=== PATIENT | female | born 1935 | race Caucasian/White ===

== ENCOUNTER 2023-03-12 11:01 | Emergency (ER) | payer MEDICARE, SELFPAY ==
[2023-03-12 11:05] VITALS: BP 150/78; PULSE 70; PULSE 74; RESP 17; TEMP 35.8; O2SAT 96; BMI 25.7
--- NOTE | 2023-03-12 11:11 | EX.ED.DYSGE1 ---
HPI History of Present Illness Chief Complaint: Foreign Body Informant: patient Narrative Narrative: Choked on a donut while she was swallowing a piece of it, she states she got to the point where she was not able to breathe or talk and was motioning for someone to get her something to drink which she did not have with her at the time; she was with about 20 women getting their hair done prior to a wedding today. She states that EMS was called and by the time they got there she had taken a sip and was able to breathe and talk, but she is not sure exactly what changed the situation; she did not receive the Heimlich maneuver from anyone. Now, no shortness of breath but a little bit of coughing residual and foreign body sensation in her throat. No discomfort or symptoms otherwise, including any in the chest. PFSH PFSH Allergy/AdvReac Type Severity Reaction Status Date / Time Iodinated Contrast Media Allergy Severe KIDNEY Verified 03/12/23 11:03 DYSFUNCTION Penicillins Allergy Mild Rash Verified 03/12/23 11:03 Sulfa (Sulfonamide Allergy Mild Rash Verified 03/12/23 11:02 Antibiotics) Social History Smoking Status: Never smoker ROS ROS ED Eyes Eyes: Denies change in vision or diplopia ENT ENT ED: Reports as per HPI Cardiovascular Cardiovascular: Denies syncope Respiratory/Chest Respiratory/Chest: Reports cough; Denies dyspnea EXAM Physical Exam Const Vital Signs: 03/12/23 11:04 03/12/23 11:05 03/12/23 11:05 Temperature 96.4 F L Temperature Source Temporal Pulse Rate 70 74 Respiratory Rate 17 17 Respiratory Effort Normal Non-Labored Respiratory Pattern Normal Blood Pressure 150/78 H 150/78 H Blood Pressure Mean 102 102 Pulse Ox 96 96 Oxygen Delivery Method Room Air Room Air Positive well nourished and well developed General Appearance ED: well developed and NAD HEENT Reports moist mucous membranes HEENT Narrative: P OP clear No stridor. No trismus. Eyes PERRL and EOMs intact bilaterally Neck no lymphadenopathy and supple Chest Wall inspection of chest normal and palpation of chest normal Resp normal respiratory effort and clear to auscultation bilaterally Cardio regular rate and regular rhythm Rate: Negative for tachycardic Extremity normal to inspection Neuro oriented x3, CN's II-XII intact bilaterally, no sensory deficits noted and gait normal Sensorium / Orientation: alert Motor Exam: strength 5/5 throughout Psych mental status grossly normal Skin no rashes or lesions noted and no wounds MDM MDM MDM Narrative Medical decision making narrative: Patient has equal breath sounds bilaterally, her throat is clear, she is able to drink water without any problems here. She initially had some minor coughing with the nurse after taking a sip, I had a repeat taking multiple drinks of water and she had no coughing. She feels fine. I think she has an abrasion in her valleculae or posterior oropharynx that is causing the globus sensation, and I am comfortable with her being discharged, she does not have any symptoms or examination findings of aspiration at this time so I do not think she needs a chest x-ray, we discussed reasons to return. She and are comfortable with that plan. Discharge Plan Triage Chief Complaint: Foreign Body ED Provider: Reji Suero Dx/Rx/DC Orders Clinical Impression: Choking episode Instructions: ED Choking Spell (Adult) Referrals: Doctor,Your [Non-Staff] - (or ER if needed) Disposition Disposition: Home, Self Care
[2023-03-12 11:58] VITALS: PULSE 71; RESP 12; O2SAT 97
== END 2023-03-12 12:06 | disposition home or self-care (01) ==
LOC: ED 12:04
PROVIDERS: Emergency Provider Emergency Medicine; Visit Provider Emergency Medicine
DX: T17.928A Food in respiratory tract, part unspecified causing other injury, initial encounter (principal)
CPT/HCPCS: 99283